=== PATIENT | male | born 1960 | race Caucasian/White ===

== ENCOUNTER 2024-06-01 15:39 | Outpatient (CLI) | payer BC | END 2024-06-01 15:40 | disposition home or self-care (01) | LOC: CSHRAD 15:39 | PROVIDERS: ATTEND Psychiatry & Neurology Neurology | DX: M48.061 Spinal stenosis, lumbar region without neurogenic claudication (principal); M47.816 Spondylosis without myelopathy or radiculopathy, lumbar region | CPT/HCPCS: 72100 ==

== ENCOUNTER 2024-06-23 12:39 | Outpatient (CLI) | payer BC ==
[~2024-06-23 12:39] MED LIST: Magnevist 469MG/ML 20 ML VIAL ONE
== END 2024-06-23 12:40 | disposition home or self-care (01) ==
LOC: CSHMRI 12:39
PROVIDERS: ATTEND Psychiatry & Neurology Neurology
DX: M48.061 Spinal stenosis, lumbar region without neurogenic claudication (principal); M43.16 Spondylolisthesis, lumbar region; M43.18 Spondylolisthesis, sacral and sacrococcygeal region
CPT/HCPCS: 72158